=== PATIENT | female | born 1950 | race Caucasian/White ===

== ENCOUNTER 2016-12-31 07:02 | Day surgery (SDC) | payer BC ==
[2016-12-31] VITALS (10 sets, daily range): BP systolic 117–143; BP diastolic 57–78
[~2016-12-31] VITALS: Ht 170.2 cm; Wt 63.5 kg
--- NOTE | 2016-12-31 06:58 | Pre-Procedure Note/Attestation ---
Pre-Procedure Note/Attestation Complete Prior to Procedure Planned Procedure: right Procedure Narrative: Right knee arthroscopy with partial menisectomy Indications for Procedure Pre-Operative Diagnosis: Right knee meniscus tear Attestation I attest that I discussed the nature of the procedure; its benefits; risks and complications; and alternatives (and the risks and benefits of such alternatives ), prior to the procedure, with the patient (or the patient's legal patient portal representative). I attest that, if there was a reasonable possibility of needing a blood transfusion, the patient (or the patient's legal patient portal representative) was given the [facility] standardized written summary, pursuant to the [place] Blood Safety Act ([place] Health and Safety Code # 1645, as amended). I attest that I re-evaluated the patient just prior to the surgery and that there has been no change in the patient's H&P, except as documented below: CÉSAR WHITAKER Dec 31, 2016 06:58
[~2016-12-31 07:02] MED LIST: NKM
[2016-12-31] MEDS ORDERED: LR 1000ml ONE (08:30)
[2016-12-31] MEDS ORDERED: fentaNYL 100 mcg/2 mL IV ONE (08:30)
[2016-12-31] MEDS ORDERED: Lidocaine 1% MPF 10mg/ml 5ml ONE (08:30)
[2016-12-31] MEDS ORDERED: Propofol 200mg/20ml IV ONE (08:30)
[2016-12-31] MEDS ORDERED: Midazolam 2mg/2ml Inj ONE (08:30)
[2016-12-31] MEDS ORDERED: Sterile Water Irrig 1000ml IRRIG ONE (08:30)
[2016-12-31] MEDS ORDERED: NS Irrig 4000ml IRRIG ONE ×2 (08:30→08:40)
[2016-12-31] MEDS ORDERED: Ropivacaine 5mg/ml Vial 30ml INJ ONE (08:39)
[2016-12-31] MEDS ORDERED: EPINEPHrine 1mg/1ml Amp ONE (08:39)
[2016-12-31] MEDS ORDERED: LR 1000ml 1,000 ML IVLG SCH (09:14)
[2016-12-31] MEDS ORDERED: Hydromorphone 0.5mg/0.5ml inj IVP PRN (09:15)
[2016-12-31] MEDS ORDERED: LR 1000ml 1,000 ML IV SCH (09:15)
[2016-12-31] MEDS ORDERED: DiphenhydrAMINE 50mg/ml Inj IVP PRN (09:15)
--- NOTE | 2016-12-31 09:18 | Anethesia Preoperative Eval ---
Anesthesia Pre-op PMH/ROS General Date of Evaluation: Dec 31, 2016 Time of Evaluation: 08:31 Anesthesiologist: Sunil ASA Score: ASA 1 Mallampati Score Class I : Soft palate, uvula, fauces, pillars visible Class II: Soft palate, uvula, fauces visible Class III: Soft palate, base of uvula visible Class IV: Only hard plate visible Mallampati Classification: Class II Surgeon: Zachery Diagnosis: Meniscus tear Surgical Procedure: Right knee scope, partial meniscectomy Family History: no anesthesia problems Allergies: Coded Allergies: No Known Allergies (Unverified , 12/30/16) Medications: see eMAR Past Medical History Cardiovascular: Denies: HTN, CAD, NH, valve dz, arrhythmia, other Pulmonary: Denies: asthma, COPD, BIPIN, other Gastrointestinal/Genitourinary: Denies: GERD, CRI, ESRD, other Neurologic/Psychiatric: Denies: dementia, CVA, depression/anxiety, TIA, other Endocrine: Denies: DM, hypothyroidism, steroids, other HEENT: Denies: cataract (L), cataract (R), glaucoma, NATIVE (L), NATIVE (R), other Hematology/Immune: Denies: anemia, DVT, bleeding disorder, other Musculoskeletal/Integumentary: Denies: OA, RA, DJD, DDD, edema, other PMH Narrative: Denies significant PMH except for endometriosis. PSxH Narrative: Ablation of endometriosis Anesthesia Pre-op Phys. Exam Physician Exam Last Vital Signs Date Time Temp Pulse Resp B/P (MAP) Pulse Ox O2 Delivery O2 Flow Rate FiO2 12/31/16 07:46 97.4 74 18 124/78 98 Room Air Constitutional: NAD Neurologic: CN 2-12 intact Cardiovascular: RRR, no M/R/G Respiratory: CTA Gastrointestinal: S/NT/ND Airway Exam Mallampati Score: Class II MO: full ROM: full Teeth: intact Anesthesia Pre-op A/P Labs WNL Studies Pre-op Studies: EKG - NSR Risk Assessment & Plan Assessment: Healthy female for knee scope Plan: GA, LMA Status Change Before Surgery: No Pre-Antibiotics Drug: Ancef Given Within 1 Hr of Incision: Yes Time Given: 08:45 MIC MARQUEZ M.D. Dec 31, 2016 09:18
--- NOTE | 2016-12-31 09:19 | Immediate Post-Op Evaluation ---
Immediate Post-Op Evalulation Immediate Post-Op Evalulation Procedure: Right knee scope, partial meniscectomy Date of Evaluation: Dec 31, 2016 Time of Evaluation: 09:50 IV Fluids: 700 Blood Pressure Systolic: 117 Blood Pressure Diastolic: 69 Pulse Rate: 84 Respiratory Rate: 20 O2 Sat by Pulse Oximetry: 99 Temperature (Fahrenheit): 97.7 Pain Score (1-10): 0 Nausea: No Vomiting: No Complications No complication Patient Status: awake, patent, none Hydration Status: adequate Drug: Ancef Given Within 1 Hr of Incision: Yes Time Given: 08:45 MIC MARQUEZ M.D. Dec 31, 2016 09:19
--- NOTE | 2016-12-31 09:38 | Brief Operative Note ---
Immediate Post Operative Note Operative Note Pre-op Diagnosis: Right knee meniscus tear Procedure: Right knee arthroscopy with partial menisectomy and chondroplasty Post-op Diagnosis: Right knee medial meniscus tear and lateral compartment chondrosis Post-op Diagnosis: same as pre-op Findings: consistent w/pre-op dx studies Surgeon: Zachery Anesthesiologist: Yuko Anesthesia: general, local Specimen: none Complications: none Condition: stable Fluids: 100 ml Estimated Blood Loss: none Drains: none Implant(s) used?: No CÉSAR WHITAKER Dec 31, 2016 09:38
--- NOTE | 2016-12-31 09:48 | 48 Hour Post Anesthesia Eval ---
Post Anesthesia Evaluation Procedure: Right knee scope, partial meniscectomy Date of Evaluation: Dec 31, 2016 Time of Evaluation: 10:20 Blood Pressure Systolic: 141 0: 76 Pulse Rate: 87 Respiratory Rate: 14 O2 Sat by Pulse Oximetry: 99 Airway: patent Nausea: No Vomiting: No Pain Intensity: 0 Hydration Status: adequate Cardiopulmonary Status: Stable Mental Status/LOC: patient returned to baseline Follow-up Care/Observations: As per surgery Post-Anesthesia Complications: No anesthetic complication Follow-up care needed: N/A MIC MARQUEZ M.D. Dec 31, 2016 09:48
[2016-12-31] MEDS ORDERED: HYDROmorphone 1mg/ml Carpuject SUBQ PRN (15:01)
[2016-12-31] MEDS ORDERED: Tylenol #3 tab (300mg/30mg) ORAL PRN (15:01)
[2016-12-31] MEDS ORDERED: Norco 5mg/325mg tab ORAL PRN (15:01)
[2016-12-31] MEDS ORDERED: D5 1/2NS 1,000 ML IV SCH (15:01)
--- NOTE | 2016-12-31 15:30 | Operative Note - Dictated ---
DATE OF OPERATION: 12/31/2016 SURGEON: Roc Bingham M.D. SLASHER HAND: None. ANESTHESIA: General plus local. COMPLICATIONS: None. ANTIBIOTICS: Ancef. PREOPERATIVE DIAGNOSES: Right knee: 1. Lateral compartment chondrosis (femoral condyle). 2. Large complex macerated medial meniscus tear from posterior to middle horn. POSTOPERATIVE DIAGNOSES: Right knee: 1. Lateral compartment chondrosis (femoral condyle). 2. Large complex macerated medial meniscus tear from posterior to middle horn. PROCEDURE PERFORMED: Right knee arthroscopy with: 1. Lateral femoral condyle debridement. 2. Partial medial meniscectomy. HISTORY: The patient has had longstanding right knee pain refractory to all nonoperative management. MRI confirmed the diagnosis. All risks, benefits, and alternatives to surgical intervention were discussed in great detail. Risks included, but were not limited to, bleeding, infection, neurovascular injury, need for additional surgical intervention, failure of pain relief, arthrofibrosis, complications of anesthesia, blood clots, stroke, heart attack, and potentially . She understood these risks, amongst others, and consent was signed. PROCEDURE IN DETAIL: The patient was brought in the operating room and placed supine on the operating room table. The right knee was correctly verified for surgical site and prepped and draped in standard sterile fashion. Exam under anesthesia revealed symmetric range of motion of the contralateral side, no effusion, and no laxity. Anterolateral and anteromedial portals were marked and injected with 20 mL of 0.25% Marcaine. A diagnostic arthroscopy was then undertaken. It revealed the followin. Normal suprapatellar pouch. 2. Normal patellofemoral articulation. 3. Normal medial gutter. 4. Normal lateral gutter. 5. Grade 2/3 chondrosis of weightbearing surface of the lateral femoral condyle. 6. Normal lateral meniscus. 7. Normal ACL. 8. Normal PCL. 9. Normal medial compartment. 10. Large complex macerated tear of the medial meniscus from posterior to middle horn. In the medial compartment, the medial meniscus tear was resected to a stable border using a right biter, left biter, up biter, and 3.5 mm shaver. It was tested with a probe thereafter and found to be stable. Attention was then turned to the lateral compartment. Along the lateral femoral condyle weightbearing surface, the edge of the chondrosis, which appeared loose, was smoothed using a 3.5 mm shaver/chondroplasty. All fluid and debris were evacuated from the knee. A 10 mL of 0.25% Marcaine were injected. The wounds were copiously irrigated and reapproximated using 4-0 Monocryl in subcuticular fashion. Steri-Strips were used over Mastisol. Dry sterile dressing was applied. A compressive stocking was fitted. She tolerated the procedure. There were no complications. I attest that I performed the entire operation. She was transferred to recovery in good condition. Roc Bingham M.D. DR: NASRA JOB#: [id number] CC:
--- NOTE | 2017-01-05 15:50 | Cardiology Report ---
APPROVED REPORT EKG Measurement Heart [id number] Normal sinus rhythm Normal ECG
== END 2016-12-31 11:30 | disposition home or self-care (01) ==
LOC: SUR 07:02
DX: S83.231A Complex tear of medial meniscus, current injury, right knee, initial encounter (principal); X58.XXXA Exposure to other specified factors, initial encounter; Y93.9 Activity, unspecified; Y92.9 Unspecified place or not applicable
CPT/HCPCS: 29881; 93005; J0171; J0690; J1200; J2250; J2405; J2704; J2795; J3010; J7120; 94003; 94150